=== PATIENT | female | born 1970 | race Two or more races ===

== ENCOUNTER 2024-07-25 19:05 | Emergency (ER) | payer MEDICARE, SELFPAY ==
[2024-07-25 19:06] VITALS: BMI 43.4
[2024-07-25 19:08] VITALS: BP 177/84; PULSE 91; RESP 20; TEMP 36.7; O2SAT 98
--- NOTE | 2024-07-25 19:11 | PD.EDRME ---
Rapid Medical Screening Exam RME Arrival date/time: 07/25/24 19:05 53 yo f present to ED for c/o of fall off horse, head,neck, back injury I have greeted and performed a focused initial assessment of this patient. A comprehensive ED assessment and evaluation of the patient, analysis of all test results, and completion of the medical decision making process will be conducted by additional ED providers. Chief Complaint: Fall Time Seen by Provider: 07/25/24 19:07 Vital signs: Vital Signs Temperature 98.0 F 07/25/24 19:08 Pulse Rate 91 07/25/24 19:08 Respiratory Rate 20 07/25/24 19:08 Blood Pressure 177/84 H 07/25/24 19:08 Pulse Oximetry (%) 98 07/25/24 19:08 Oxygen Delivery Method Room Air 07/25/24 19:08
--- NOTE | 2024-07-25 19:30 | XR_ITS ---
Examination: CT cervical spine without contrast 2-D sagittal reconstructions 2-D coronal reconstructions 3-D reconstructions. Exam date and time:July 25, 2024 at 1944 hrs. Indication: Seizure today with injury to the neck, neck pain CTDI:vol (mGy) 9.59 DLP: (mGycm) 214 Technique: Multiple 2 mm axial sections of the cervical spine have been obtained. The coronal and sagittal reconstructions have been obtained. 3-D reconstructions have been obtained. Low dose protocols were performed. One or more of the following dose reduction techniques were used; automated exposure control, adjustment of the mA and/or KV according to patient size, use of iterative reconstruction technique. Findings: Axial sections demonstrate intact base of the skull. C1 exhibit satisfactory relationship to the odontoid. No acute cervical vertebral body fracture seen. Alignment posterior spinous processes satisfactory. Impression: No acute cervical fracture.
--- NOTE | 2024-07-25 19:30 | XR_ITS ---
Examination: CT brain head without contrast. 2-D sagittal coronal reconstructions Date and time of exam:July 25, 2024 1944 hrs. Indications: Patient fell off a worse today with injury to the head, head pain CTDI: vol (mGy):55.4 DLP: (mGycm):1159 Technique: Multiple CT axial sections of the brain have been obtained, 5 mm slice thickness. Contrast has not been administered. 2-D sagittal, coronal reconstructions have been obtained Low dose protocols were performed. One or more of the following dose reduction techniques were used; automated exposure control, adjustment of the mA and/or KV according to patient size, use of iterative reconstruction technique. Findings: No significant ventricular enlargement. Intra-axial or extra-axial hemorrhage density is not seen. No mass effect or midline shift Basal cisterns are not remarkable. Fourth ventricle is midline. Cranial vault intact. Impression: Negative for acute hemorrhage, mass effect or midline shift
--- NOTE | 2024-07-25 19:30 | XR_ITS ---
Examination: CT chest, without intravenous contrast. CT abdomen, without intravenous contrast. CT pelvis, without intravenous contrast. 2-D sagittal and coronal reconstructions. 3-D reconstructions. Date and time of exam:July 25, 2024 1952 hrs. Indications: Seizure today with chest abdominal and back pain CTDI vol (mgy) 21 DLP (MGycm 1460 Technique: Multiple CT images, 3.0 mm slice thickness, obtained chest, abdomen, pelvis, with the high-resolution 64 slice scanner.. Sagittal and coronal 2-D reconstructions are obtained. 3-D reconstructions Low dose protocols were performed. One or more of the following dose reduction techniques were used; automated exposure control, adjustment of the mA and/or KV according to patient size, use of iterative reconstruction technique. Findings: Thoracic aorta pulmonary arteries appear intact on this noncontrast study No hemopericardium No pneumothorax pulmonary contusion or hemothorax The manubrium, the body the sternum intact, ribs intact No thoracic or lumbar vertebral body compression fracture No liver splenic or renal laceration, no perinephric hematoma Abdominal aorta intact, no free blood in the abdomen Absent gallbladder Normal pancreas Negative for pneumoperitoneum Normal appendix Scattered colonic diverticulosis Urinary bladder intact Sacral segments and bones of the pelvis hips intact Impression: Thoracic aorta pulmonary arteries intact No hemopericardium, pneumothorax, pulmonary contusion or hemothorax No abdominal parenchymal laceration Abdominal aorta intact No free blood in the abdomen or pelvis Osseous structures intact
--- NOTE | 2024-07-25 19:31 | EDNOTE_ITS ---
ED Fall Injury RME/HPI General Chief Complaint: Fall Stated Complaint: FELL OFF HORSE, HIT HEAD, DIZZY Time Seen by Provider: 07/25/24 19:07 Arrival date/time: 07/25/24 19:05 RME / HPI RME / HPI Narrative: 07/25/24 19:05 53 yo f present to ED for c/o of fall off horse, head,neck, back injury I have greeted and performed a focused initial assessment of this patient. A comprehensive ED assessment and evaluation of the patient, analysis of all test results, and completion of the medical decision making process will be conducted by additional ED providers. This section includes all my notes and documentations, including HPI, PE, and ED course. Alvaro Garcia MD HPI: 53 y/o female with SHx Hysterectomy presents to ED BIB cousin presents to ED c/o disorientation, and head and back injury s/p trying to mount a horse x approximately 30 minutes ago. The saddle slipped back off the horse causing patient to slip back towards, hitting left side and hit the back of her head and back on concrete ledge that she used to stand before getting on the horse. Cousin states they had to help patient up off the ground. Patient had trouble staying awake. No obvious pain in the lower extremities walking with help and g etting into the car. Patient is allergic to morphine. EMS was not called. No other complaints. ROS: All negative except as documented in HPI. Physical Exam: General: Alert and oriented. Appears uncomfortable. Eyes: Conjunctivae and lids clear. EOMI. PERRL. ENT: No nasal congestion. Neck: Supple. No tenderness. Heart: RRR. Lungs: No respiratory distress. Good air movement. No rhonchi, wheezing, rales. Chest: No tenderness. Abdomen: Soft and nontender. Back: No tenderness. Skin: Warm and dry. Second [place] sized hematoma in the occipital scalp. Neuro: Alert and oriented X 3. Cranial Nerves II-XII grossly intact. No peripheral motor deficits. Musculoskeletal: All major joints and bones are not tender with no limited ROM. I reviewed all diagnostic test results. My review of the head CT report is negative for acute hemorrhage, mass effect or midline shift. My review of the chest/abdomen/pelvis CT report is No hemopericardium, pneumothorax, pulmonary contusion or hemothorax, No abdominal parenchymal laceration, Abdominal aorta intact, No free blood in the abdomen or pelvis. My review of the cervical spine CT report is no acute cervical fracture. At this point, diagnoses include head injury, Contusion of soft tissue. Treatment here included Tylenol w/ Codeine Phosphate, Toradol IM, Zofran. Significant improvement noted. Recommended supportive care. Based on my best medical judgment, made decision no further evaluation or treatment indicated at this time. Patient understands and agrees to the discharge instructions customized and printed, see below. Discharge instructions from Dr. Garcia: 1. After extensive evaluation, fortunately there is no very serious injury.? Such as brain injury or broken neck or broken back or other broken bone or internal organ injury. 2. Activity as tolerated.? Expect to have aches and pain for a couple of weeks, maybe worse in the next couple of days before improving. Contusions and bruising this can cause significant pain for several weeks. 3. Apply ice for 20 minutes every 2-3 hours today and tomorrow. Toradol 10 mg every 6-8 hours today and tomorrow to decrease inflammation then as needed. Cyclobenzaprine and Tylenol with codeine as needed. 4. See a private doctor on 07/27/2024 for recheck and repeat exam to make sure we didn't miss any serious underlying injury. Have someone monitor you closely for 24 hours from the time of injury. Seek immediate medical care with severe and persistent headache, persistent vomiting, being extremely drowsy when you should be completely alert and awake, or with any concerns. Alvaro Garcia MD Related Data Previous Rx's ?Medication ?Instructions ?Recorded acetaminophen 300 mg-codeine 30 mg 2 tab PO Q8H PRN pa in #20 tabs 07/25/24 tablet cyclobenzaprine 10 mg tablet 10 mg PO Q8H PRN muscle s pasm #30 07/25/24 tabs ketorolac 10 mg tablet 10 mg PO Q8H PRN pain 5 days #10 07/25/24 tabs ondansetron 4 mg disintegrating 4 mg PO TID PRN nausea and 07/25/24 tablet vomiting 30 days #10 tabs Allergies Allergy/AdvReac Type Severity Reaction Status Date / Time morphine Allergy Severe Abdominal Verified 07/25/24 19:08 Pain Review of Systems Review of Systems Systems Reviewed: All systems reviewed, normal except as documented Narrative Review of Systems: Refer to HPI above. Past Medical History Surgical History SURGICAL: Positive Hysterectomy Social History SMOKING STATUS: Never smoker ED Exam Narrative Physical exam: Refer to HPI above. Course Quality Measures none Orders Category Date Time Status CT cervical spine wo con Stat Exams 07/25/24 19:[address] chest abdomen pelvis wo Stat Exams 07/25/24 19:[address] head/brain wo con Stat Exams 07/25/24 19:30 Completed ACETAMINOPHEN w/COD 300-30 [Tylenol w/Cod #3] Med 07/25/24 19:29 Discontinued 2 tab PO X1 ONE HYDROcodone/APAP 10/325 [[place] 10/325] Med 07/25/24 19:10 Discontinued 1 tab PO X1 ONE Ketorolac Inj [Toradol Inj] Med 07/25/24 19:29 Discontinued 60 mg IM X1 ONE Ondansetron Odt [Zofran Odt] Med 07/25/24 19:10 Discontinued 4 mg PO X1 ONE Ondansetron Odt [Zofran Odt] Med 07/25/24 19:29 Discontinued 4 mg PO X1 ONE Vital Signs Vital signs: Vital Signs Temperature 98.0 F 07/25/24 19:08 Pulse Rate 91 07/25/24 19:08 Respiratory Rate 20 07/25/24 19:08 Blood Pressure 177/84 H 07/25/24 19:08 Pulse Oximetry (%) 98 07/25/24 19:08 Oxygen Delivery Method Room Air 07/25/24 19:08 Fall MDM Narrative MDM Narrative:: Scribe Attestation: Aileen Burnham am scribing for and in the presence of Dr. Garcia. Provider Notation: Although this document has been carefully reviewed, there may still be some phonetic and other typographical errors. These errors are purely grammatical due to imperfections in the software program and should not be construed in any way to compromise the substance of the patient's medical care during this visit. 53 y/o female with SHx Hysterectomy presents to ED BIB cousin presents to ED c/o disorientation, and head and back injury s/p trying to mount a horse x approximately 30 minutes ago. The saddle slipped back off the horse causing patient to slip back towards her left side and hit the back of her head and back on the curb. Cousin states they had to help patient up off the ground. Patient was not able to walk on her own and could not stay awake Patient data External records reviewed:: [facility] previous records (No prior ED visit records to review.) Clinical information provided by:: patient and family (cousin) Social determinants that could affect healthcare access:: none Patient has the following chronic illnesses:: None reported. How is presenting disease/condition affected by chronic disease/condition?: no chronic disease (None reported.) Evaluation data The following diagnostics were reviewed and interpreted by me:: radiology exam(s) Lab and/or radiology exams considered but not ordered:: None. Interpretation Summary: No serious injury. My review of the head CT report is negative for acute hemorrhage, mass effect or midline shift. My review of the chest/abdomen/pelvis CT report is No hemopericardium, pneumothorax, pulmonary contusion or hemothorax, No abdominal parenchymal laceration, Abdominal aorta intact, No free blood in the abdomen or pelvis. My review of the cervical spine CT report is no acute cervical fracture. Medications / Prescriptions Medications or Prescriptions considered but not ordered:: None. Medication administrations:: Medication Administration History Discontinued Medications Acetaminophen/Codeine Phosphate (Acetaminophen W/Cod 300-30 Tablet) 2 tab PO X1 ONE Stop: 07/25/24 19:30 Last Admin: 07/25/24 19:40 Dose: 2 tab Documented By: AMY Hydrocodone Bitart/Acetaminophen (Hydrocodone/Apap 10/325 Tab) 1 tab PO X1 ONE Stop: 07/25/24 19:11 Last Admin: 07/25/24 19:23 Dose: Not Given Documented By: AMY Non-Admin Reason: Discontinued Ketorolac Tromethamine (Ketorolac Inj 60 Mg/2 Ml Vial) 60 mg IM X1 ONE Stop: 07/25/24 19:30 Last Admin: 07/25/24 19:40 Dose: 60 mg Documented By: AMY Ondansetron HCl (Ondansetron Odt 4 Mg Tabrap) 4 mg PO X1 ONE; Protocol Stop: 07/25/24 19:11 Last Admin: 07/25/24 19:23 Dose: Not Given Documented By: AMY Non-Admin Reason: Discontinued Ondansetron HCl (Ondansetron Odt 4 Mg Tabrap) 4 mg PO X1 ONE; Protocol Stop: 07/25/24 19:30 Last Admin: 07/25/24 19:40 Dose: 4 mg Documented By: AMY Tylenol w/ Codeine Phosphate, Toradol IM, Zofran Consultations Consultation(s) initiated? (list below): No Diagnosis Fall Differential Diagnosis: compression fracture, concussion with loss of consciousness, concussion without loss of consciousness and other (Skull fracture, intracranial bleed, vertebral fracture, internal organ injury) Most likely diagnosis given after review of the tests above:: Head injury, Contusion of soft tissue Admission Indicated Admission indicated?: not indicated Explain why admission is indicated or not indicated:: With significant improvement, there was no indication for admission. Admission Request Was there a request for admission?: No Disposition Plan Disposition Plan: Discharge Discharge Attestation Discharge Attestation: The patient and all family members were given an opportunity to ask questions and understood the discharge instructions. Discharge instructions specifically effects, indications for sooner follow up or return to the emergency department, and the expected course of current diagnosis. Patient condition: Stable Discharge Plan Plan Patient Disposition: HOME (Self Care) Prescriptions/Referrals Prescriptions/Med Rec: New cyclobenzaprine 10 mg tablet 10 mg PO Q8H PRN (Reason: muscle spasm) Qty: 30 0RF acetaminophen-codeine 300-30 mg tablet 2 tab PO Q8H MDD 6 PRN (Reason: pain) Qty: 20 0RF ketorolac 10 mg tablet 10 mg PO Q8H PRN (Reason: pain) 5 Days Qty: 10 0RF ondansetron 4 mg tablet,disintegrating 4 mg PO TID PRN (Reason: nausea and vomiting) 30 Days Qty: 10 0RF Referrals: CINDI KENNEDY [Other] - In 1 week Problem List Clinical Impression: Head injury, Contusion of soft tissue Patient/Caregiver Discharge Instructions Discharge Activity: activity as tolerated Education Materials: ED Soft Tissue Contusion, ED Head Injury (Adult) Additional Instructions: Discharge instructions from Dr. Garcia: 1. After extensive evaluation, fortunately there is no very serious injury.? Such as brain injury or broken neck or broken back or other broken bone or internal organ injury. 2. Activity as tolerated.? Expect to have aches and pain for a couple of weeks, maybe worse in the next couple of days before improving. Contusions and bruising this can cause significant pain for several weeks. 3. Apply ice for 20 minutes every 2-3 hours today and tomorrow. Toradol 10 mg every 6-8 hours today and tomorrow to decrease inflammation then as needed. Cyclobenzaprine and Tylenol with codeine as needed. 4. See a private doctor on 07/27/2024 for recheck and repeat exam to make sure we didn't miss any serious underlying injury. Have someone monitor you closely for 24 hours from the time of injury. Seek immediate medical care with severe and persistent headache, persistent vomiting, being extremely drowsy when you should be completely alert and awake, or with any concerns. Print Language: Kazakh Stand Alone Forms: [employer] Award Info., Patient Portal Info Letter
--- NOTE | 2024-07-25 19:36 | PC.NURSE ---
Per MD Garcia given Toradol meds before CT results
[2024-07-25] MEDS: ONDANSETRON ODT 4 MG TABRAP PO (19:40)
[2024-07-25] MEDS: KETOROLAC INJ 60 MG/2 ML VIAL IM (19:40)
[2024-07-25] MEDS: ACETAMINOPHEN w/COD 300-30 TABLET 2 TAB PO (19:40)
== END 2024-07-25 21:35 | disposition home or self-care (01) ==
PROVIDERS: Emergency Provider Emergency Medicine
DX: S00.93XA Contusion of unspecified part of head, initial encounter (principal); S19.9XXA Unspecified injury of neck, initial encounter; S09.90XA Unspecified injury of head, initial encounter; M54.9 Dorsalgia, unspecified; R10.9 Unspecified abdominal pain; R07.9 Chest pain, unspecified; V80.010A Animal-rider injured by fall from or being thrown from horse in noncollision accident, initial encounter; Y93.52 Activity, horseback riding
CPT/HCPCS: 70450; 71250; 72125; 74176; 80053; 83690; 84703; 85025; 85610; 96372; 99284; J1885; Q0162; A9270